=== PATIENT | male | born 1970 | race Caucasian/White ===

== ENCOUNTER 2017-06-25 11:48 | Emergency (ER) | payer OTHER, BC ==
[2017-06-25 12:24] LABS: Hematocrit 43.8 % (42.0-52.0); Hemoglobin 15.2 gm/dL (13.5-18.0); Mean Corpuscular Hemoglobin 30.9 pg (27-31); Mean Corpuscular Hgb Conc 34.7 g/dl (32-36); Mean Platelet Volume 10.7 fl (6.0-9.5); Platelet Count 284 K/mm3 (150-450); Red Blood Count 4.92 M/mm3 (4.7-6.0); Red Cell Distribution Width 12.1 % (11.5-14.0); White Blood Count 6.6 K/mm3 (4.0-10.5)
[2017-06-25 12:25] LABS: Neutrophil # 4.4 K/mm3 (1.3-6.0); Neutrophil % 66.5 % (42-75.0)
--- NOTE | 2017-06-25 12:26 | ERNOTE ---
Medical Problem HPI - Narrative Date of Service: 06/25/17 - General Chief Complaint: General Assessment Time Seen by Provider: 06/25/17 12:05 Source: patient Exam Limitations: no limitations - Immun/Allergies/Home Medications Immunizations: IMMUNIZATION HX Immunizations Up to Date Yes History of Influenza Vaccine No Hx Pneumococcal Vaccination No Allergies/Adverse Reactions: Allergies No Known Allergies Allergy (Verified 06/20/15 11:25) Home Medications: HOME MEDICATIONS glipiZIDE [Glucotrol Xl] 5 mg PO BID 10/21/12 [Last Taken 09/15/13 08:00] metFORMIN HCL [Metformin HCl ER] 1,000 mg PO BID 10/21/12 [Last Taken 09/15/13 08:00] metFORMIN HCL [Metformin HCl ER] 500 mg PO DAILY 10/21/12 [Last Taken 09/15/13 12:00] - History of Present History Narrative: Pt. comes in with c/o getting electrocuted while standing in water at work and touching heat tape with his L forearm. Pt. denies any open wounds or garrison from the injury but states that he felt the electricity go through B arms and across his upper back through his post shoulders. Pt. denies any heart palpitations NVD, fever, muscle twitching but does stae that he feels fatigued and weakened in general. Pt. denies any prehospital treatment. Review of Systems - Review of Systems Constitutional: Present: weakness, fatigue. Absent: fever, chills, diaphoresis , malaise, weight loss, decreased activity level EYE: Present: no symptoms reported. Absent: eye pain, eye discharge, double vision, vision changes ENT: Present: no symptoms reported. Absent: nose pain, nose congestion, nasal drainage, sore throat, throat swelling Respiratory: Present: no symptoms reported. Absent: shortness of breath, cough , wheezing Cardiology: Present: no symptoms reported. Absent: chest pain, palpitations, edema Gastrointestinal/Abdominal: Present: no symptoms reported Genitourinary: Present: no symptoms reported. Absent: frequency, decreased urinary output Musculoskeletal: Present: no symptoms reported. Absent: back pain, joint pain Skin: Present: no symptoms reported Neurological: Present: no symptoms reported. Absent: headache, dizziness/light- headedness, tingling, tremors All Other Systems: All systems neg except as marked - Patient's Past Medical History Patient History - Medical: Diabetes Type 2 Insulin Dependent Patient History - Cardiac/Respiratory: COPD Patient History - Cancer: No Hx of Cancer Patient History - Surgical Procedures: T & A Patient History - Other: None - Social History Living Situations: home Abuse History: No History of abuse Psych History: No pertinent hx Smoking Status: Never smoker Alcohol Use: rarely Drug Use: none - Immunizations Immunizations Up to Date: Yes Hx Pneumococcal Vaccination: No History of Influenza Vaccine: No Physical Exam - Physical Exam General Appearance: Present: wd/wn, alert, no apparent distress Head Exam: Present: normal inspection, no evidence of injury Eye Exam: Normal inspection: bilateral, PERRL: bilateral, EOMI: bilateral Ears, Nose, Throat: Present: normal ENT inspection, normal pharynx Neck: Present: normal inspection, nontender. Absent: lymphadenopathy (R), lymphadenopathy (L) Respiratory: Present: no respiratory distress, normal breath sounds, no accessory muscle use, chest nontender, lungs clear Cardiovascular/Chest: Present: regular rate, rhythm, no murmur, normal peripheral pulses Gastrointestinal/Abdominal: Present: normal bowel sounds, nontender, nondistended, soft, no organomegaly Back Exam: Present: normal inspection, normal range of motion, no CVA tenderness , no vertebral tenderness Extremity Exam: Present: normal inspection, non-tender, normal range of motion, no edema Neurological Exam: Present: alert, oriented, normal mood/affect, no motor/ sensory deficits, 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 Absent: pallor, skin rash ED Progress - Date and Time Seen: Date and Time: 06/25/17 12:[address] López and as pt. has no signs of acute arrythmia will just have pt. follow up later this week for reevaluation. - Results and Orders Patient's Lab Results:: I have reviewed the patient's lab results. - Vital Signs Patient's Vital Signs:: I have reviewed the patient's vital signs. Vital Signs: Vital Signs 06/25/17 11:51 Temperature 36.8 C Pulse Rate 90 Respiratory 16 Rate Blood Pressure 163/88 O2 Sat by Pulse 97 Oximetry - EKG EKG: NSR EKG read: Reviewed by me EKG Comments: interp by Dr López - Progress/Reassessment Chief Complaint: General Assessment Departure - Departure Clinical Impression: Electric shock Qualifiers: Encounter type: initial encounter Qualified Code(s): T75.4XXA - Electrocution, initial encounter Disposition: Home self-care Condition: Good Instructions: Electric Shock Injury Additional Instructions: Please follow up with [facility] this week for follow up.
[2017-06-25 12:40] LABS: Albumin * 3.9 gm/dl (3.4-5.0); Anion Gap 15.4 mmol/L (6.8-13.8); BUN/Creatinine Ratio 15.2 (9.0-21.6); Bilirubin, Total 0.6 mg/dL (0.0-1.1); Calcium * 9.2 mg/dL (7.9-10.9); Carbon Dioxide 23.9 mmol/L (24-32.6); Potassium 4.3 mmol/L (3.4-4.6); Total Protein 7.6 gm/dL (6.2-8.2)
[2017-06-25 13:16] VITALS: BP 128/92
== END 2017-06-25 12:55 | disposition home or self-care (01) ==
LOC: ER 11:48
DX: T75.4XXA Electrocution, initial encounter (principal); W86.8XXA Exposure to other electric current, initial encounter; Y92.63 Factory as the place of occurrence of the external cause; Y99.0 Civilian activity done for income or pay